=== PATIENT | male | born 1945 | race Caucasian/White ===

== ENCOUNTER → 2020-08-05 | Day surgery (SDC) | payer MEDICARE, BC ==
[2020-08-05] MEDS: Lactated Ringers 1,000 ML IV SCH (07:30)
[2020-08-05 09:18] VITALS: BP 144/62; PULSE 73
--- NOTE | 2020-08-05 10:20 | OR ---
DATE OF OPERATION: 08/05/2020 PREOPERATIVE DIAGNOSIS: PERSISTENT DIARRHEA. POSTOPERATIVE DIAGNOSIS: PERSISTENT DIARRHEA. SURGEON: Lit Lewis MD PROCEDURE: DIAGNOSTIC COLONOSCOPY WITH BIOPSY X7 AND SNARE POLYPECTOMY X1. ANESTHESIA: MAC. COMPLICATIONS: None. SPECIMEN: 1. Random colon biopsies and focal biopsies x7 from terminal ileum to rectosigmoid junction. 2. Large tubulovillous adenoma mid sigmoid colon. RECOMMENDATIONS: The patient will follow up for pathology reports next week. He will need a followup colonoscopy in 3 years due to the size of this polyp. INDICATIONS: Mr. Jin has been having some ongoing issues with colitis and abdominal pain, diarrhea. He had a course of antibiotics for suspected diverticulitis and he is just not improving. Labs, stool studies, and CT of the abdomen have been nonspecific. DESCRIPTION OF PROCEDURE: The patient was prepped and draped, placed in the left lateral decubitus position. A lubricated Olympus colonoscope was inserted and cautiously but safely advanced to the cecum. We were able to directly visualize the ileocecal valve and appendiceal orifice. Bowel prep was adequate. The scope was advanced into the terminal ileum, which appeared benign. We did do a biopsy of that. From the cecum to the sigmoid colon, there were no gross abnormalities. We did do random biopsies as well in the ascending and transverse area along with the descending colon. The patient did have a couple of small focal areas of colitis in the distal descending and proximal sigmoid area of which we took 2 specific biopsies of around 50 cm. The patient had a large tubulovillous lesion of approximately a centimeter or more, removed it with a snare, and suctioned into polyp trap #1 without complication. No other signs of colitis were seen in the mid sigmoid down through the rectosigmoid or rectal vault. Another biopsy randomly was done at the rectosigmoid area. The rectal vault itself was benign. Retroflexion showed no perianal lesions. Air was suctioned. Scope removed without complications. PATRICIA/SUMIT /[id number]
== END ==
LOC: CC.SDS 07:26
PROVIDERS: ATTEND Family Medicine
DX: D12.5 Benign neoplasm of sigmoid colon (principal); K58.2 Mixed irritable bowel syndrome; E03.9 Hypothyroidism, unspecified; E78.5 Hyperlipidemia, unspecified; G47.33 Obstructive sleep apnea (adult) (pediatric); Z88.0 Allergy status to penicillin; Z88.1 Allergy status to other antibiotic agents; Z79.82 Long term (current) use of aspirin; Z79.890 Hormone replacement therapy; Z79.899 Other long term (current) drug therapy; Z90.49 Acquired absence of other specified parts of digestive tract
CPT/HCPCS: 45380; 45385; J7120

== ENCOUNTER → 2023-05-03 | Day surgery (SDC) | payer MEDICARE, BC ==
[~2023-05-03] MED LIST: Ketamine 200 MG/20 ML MDV ONE; Lactated Ringers 1,000 ML IV SCH; Metoclopramide 10 MG/2 ML SDV IVPUSH STA; Ondansetron 4 MG/2 ML SDV ONE; Propofol 200 MG/20 ML SDV ONE; fentaNYL 50 MCG/ML SDV ONE
[2023-05-03 11:01] VITALS: BP 139/69; PULSE 50
== END ==
LOC: CC.SDS 08:49
PROVIDERS: ATTEND Family Medicine
DX: Z12.11 Encounter for screening for malignant neoplasm of colon (principal); K57.30 Diverticulosis of large intestine without perforation or abscess without bleeding; G47.30 Sleep apnea, unspecified; N40.1 Benign prostatic hyperplasia with lower urinary tract symptoms; E03.9 Hypothyroidism, unspecified; E83.42 Hypomagnesemia; E78.5 Hyperlipidemia, unspecified; R35.1 Nocturia; J20.9 Acute bronchitis, unspecified; L57.0 Actinic keratosis; Z86.010 Personal history of colon polyps; Z79.82 Long term (current) use of aspirin; Z79.890 Hormone replacement therapy; Z79.899 Other long term (current) drug therapy; Z88.2 Allergy status to sulfonamides; Z88.1 Allergy status to other antibiotic agents
CPT/HCPCS: 00812; 99100; J2405; J2704; J2765; J3010; J3490; J7120